=== PATIENT | female | born 1935 | race Caucasian/White ===

== ENCOUNTER 2018-06-29 13:55 | Outpatient (REF) | payer MEDICARE, BC, SELFPAY ==
[2018-06-29 18:48] LABS: Bilirubin Negative (Negative); Blood Small (Negative); Clarity Clear; Glucose Negative (Negative); Ketones Trace mg/dL (Negative); Leukocyte Esterase Small (Negative); Nitrite Negative (Negative); Urobilinogen 0.2 EU/dL (Up TO 0.2)
[2018-06-29 18:51] LABS: Abs Immature Grans 0.03 k/cumm (0.0-0.09); Absolute Basophil Count 0.04 k/cumm (0.0-0.2); Absolute Eosinophil Count 0.09 k/cumm (0.0-0.7); Absolute Lymphocyte Count 1.56 k/cumm (1.2-3.4); Absolute Monocyte Count 0.86 k/cumm (0.11-0.7); Absolute Neutrophil Count 6.79 k/cumm (1.2-6.7); Basophils % 0.4; HCT 41.2 % (36.0-46.0); HGB 14.1 g/dL (12.0-15.5); Immature Grans % 0.3; Lymphocytes % 16.6; Mean Corp. HGB Concentration 34.2 g/dL (32.0-36.0); Mean Corpuscular Hemoglobin 29.9 pg (27.0-33.0); Mean Corpuscular Volume 87.5 fL (80-95); Mean Platelet Volume 11.7 fL (8.0-11.0); Monocytes % 9.2; Neutrophils % 72.5; Platelet Count 239 x1000/uL (130-400); RBC 4.71 m/cumm (4.00-5.20); RBC Distribution Width 14.6 % (11.7-14.6); White Blood Cell Count 9.37 k/cumm (4.4-10.8)
[2018-06-29 19:35] LABS: ALT 23 U/L (12-78); AST 29 U/L (15-37); Albumin 3.5 g/dL (3.4-5.0); Alkaline Phosphatase 82 U/L (46-116); Anion Gap 6.3 mmol/L (3-11); BUN 12 mg/dL (7-18); Bilirubin, Total 0.7 mg/dL (0.2-1.0); CO2 33.7 mmol/L (21.0-32.0); Calcium 8.9 mg/dL (8.5-10.1); Chloride 95 mmol/L (98-107); Glucose 83 mg/dL (70-100); Sodium 135 mmol/L (136-145); Total Protein 6.8 g/dL (6.4-8.2)
[2018-06-29 19:51] LABS: Bacteria Few HPF (Negative); C & S Indicated? Yes; Casts Negative LPF (Negative); Crystals Negative HPF (Negative); Epithelial Cells Rare HPF (Negative); Mucus Negative (Negative); Other Cells Moderate Renal (Negative)
== END 2018-06-29 14:15 ==
LOC: NCHCN 13:55
PROVIDERS: PCP Family Medicine; Visit Provider Family Medicine
DX: R26.89 Other abnormalities of gait and mobility (principal); R32 Unspecified urinary incontinence
CPT/HCPCS: 80053; 81003; 81015; 85025; 87086

== ENCOUNTER 2019-03-31 09:32 | Emergency (ER) | payer MEDICARE, BC, SELFPAY ==
[2019-03-31 09:30] VITALS: BP 155/73; PULSE 86; RESP 16; TEMP 36.2; O2SAT 99
[2019-03-31 09:55] LABS: Bilirubin Negative (Negative); Blood Negative (Negative); Clarity Clear (Clear); Glucose Negative (Negative); Ketones Negative (Negative); Leukocyte Esterase Trace (Negative); Nitrite Negative (Negative); Specific Gravity 1.015 (1.005-1.025); Urobilinogen 0.2 EU/dL (Up TO 0.2)
[2019-03-31 09:59] LABS: Abs Immature Grans 0.01 k/cumm (0.0-0.09); Absolute Basophil Count 0.04 k/cumm (0.0-0.2); Absolute Lymphocyte Count 1.91 k/cumm (1.2-3.4); Absolute Monocyte Count 0.37 k/cumm (0.11-0.7); Absolute Neutrophil Count 4.65 k/cumm (1.2-6.7); Basophils % 0.6; Eosinophils % 1.4; HCT 41.6 % (36.0-46.0); Immature Grans % 0.1; Mean Corp. HGB Concentration 33.7 g/dL (32.0-36.0); Mean Corpuscular Volume 92.2 fL (80-95); Monocytes % 5.2; Neutrophils % 65.7; Platelet Count 307 x1000/uL (130-400); RBC 4.51 m/cumm (4.00-5.20); RBC Distribution Width 15.4 % (11.7-14.6); White Blood Cell Count 7.08 k/cumm (4.4-10.8)
[2019-03-31 10:08] LABS: Epithelial Cells Rare HPF (Negative); RBC Negative (0-2); WBC 0-2 HPF (0-5)
[2019-03-31 10:08] LABS: Anion Gap 8.9 mmol/L (3-11); BUN 14 mg/dL (7-18); CO2 30.1 mmol/L (21.0-32.0); CREATININE 0.88 mg/dL (0.55-1.02); Calcium 9.1 mg/dL (8.5-10.1); Chloride 103 mmol/L (98-107); Glucose 95 mg/dL (70-100); Potassium 3.2 mmol/L (3.5-5.1); Sodium 142 mmol/L (136-145)
[2019-03-31 10:09] LABS: Bacteria Negative HPF (Negative); C & S Indicated? No; Casts 0-2 Fine Granular LPF (Negative); Crystals Negative HPF (Negative); Mucus Negative (Negative)
[2019-03-31 10:19] LABS: *AMPHETAMINES SCREEN URINE Negative (Negative); *BARBITURATES SCREEN URINE Negative (Negative); *BENZODIAZEPINES SCREEN URINE Negative (Negative); Cannabinoids THC Negative (Negative); Cocaine Screen,Urine Negative (Negative); METHADONE URINE SCREEN Negative (Negative); OPIATES URINE SCREEN Negative (Negative)
--- NOTE | 2019-03-31 10:21 | ED.GENADUL_ITS ---
Discharge Plan Disposition Patient Disposition: SN[facility] ([facility]) [facility] Condition: Good Discharge Details Chief Complaint: Anxiety Clinical Impression: Emotional crisis, Dementia Primary Care Provider: Danielle Barclay ED Provider: Son Payne Home Meds and New Rx's Prescriptions: Continued multivitamin [Daily Vitamin] 1 EACH tablet 1 ea PO DAILY RF: 0 calcium carbonate [Calcium 600] 600 MG tablet 1,200 mg PO DAILY RF: 0 amitriptyline 25 MG tablet 25 mg PO DAILY RF: 0 hydrochlorothiazide 12.5 MG capsule 12.5 mg PO DAILY RF: 0 metoprolol succinate 25 MG tablet extended release 24 hr 75 mg PO DAILY RF: 0 diazepam 5 MG tablet 5 mg PO DAILY RF: 0 omega-3 fatty acids [Fish Oil] 500 MG capsule 2,000 mg PO DAILY RF: 0 cholecalciferol (vitamin D3) [Vitamin D3] 2,000 UNIT capsule 2,000 unit PO DAILY RF: 0 simvastatin 5 MG tablet 5 mg PO DAILY RF: 0 magnesium oxide 500 MG capsule 500 mg PO DAILY RF: 0 Discharge Instructions Instructions: Dementia (ED) Additional Instructions: Please continue to take your daily medications and medical staff coordinator at facility should be redirecting patient for any emotional outburst as there is not seen any physical or medical cause to this but her ongoing dementia. Referrals: Danielle Barclay MD [Primary Care Provider] - (As needed for reassessment) Discharge Data Discharge Date/Time-TO BE ENTERED AT DEPARTURE: 03/31/19 10:48 Medical Decision Making Patient presenting to the emergency department via EMS for emotional outburst. Report was given that patient got upset involving of vent with her daughter and staff were unable to handle patient. Per RN report staff did not use any of her prescribed agitation medications as patient was refusing emergency nursing staff informed me that they do have as needed Haldol orders that were placed. EMS stated that patient calm down once custodial staff let patient go and they were able to talk and calm her down. Patient denies any symptoms but does states she remembers the event and that she was upset about her daughter having to change her close. She states overall she has not been happy with her care facility but is completely calm now. Labs were ordered per protocol by medical staff coordinator and reviewed and show only slightly low potassium but otherwise are nondiagnostic. I feel that this is a emotional outburst secondary to patient's ongoing dementia and I see no worrisome findings on physical exam or speaking with patient. Patient is easily redirectable, calm, and was completely willing to take oral potassium and states that she is willing to take her other medications when she returns back to the facility. I feel patient may return back to facility with no further interventions needed. HPI General Mode of arrival: EMS . Date/Time Provider Initiated Documentation: 03/31/19 09:44 . Limitations to Documentation: no limitations . Information obtained by: patient, EMS and RN notes reviewed . History of Present Illness 83 year old F presents to the emergency department with the chief complaint of Emotional outburst, Quality is described as other (Denies pain or discomfort), Patient started experiencing this minute(s) (30) Rest improves symptom(s), Patient notes no other symptoms.. Patient did receive the following treatments prior to arrival, none Related Data Home Medications Medication Instructions Recorded Confirmed amitriptyline 25 mg PO DAILY tab-cap 10/10/13 calcium carbonate [Calcium 600] 1,200 mg PO DAILY 10/10/13 cholecalciferol (vitamin D3) 2,000 unit PO DAILY 10/10/13 [Vitamin D3] diazepam 5 mg PO DAILY 10/10/13 hydrochlorothiazide 12.5 mg PO DAILY tab-cap 10/10/13 metoprolol succinate 75 mg PO DAILY tab-cap 10/10/13 multivitamin [Daily Vitamin] 1 ea PO DAILY 10/10/13 omega-3 fatty acids [Fish Oil] 2,000 mg PO DAILY 10/10/13 magnesium oxide 500 mg PO DAILY 12/16/15 simvastatin 5 mg PO DAILY 12/16/15 Allergies Allergy/AdvReac Type Severity Reaction Status Date / Time No Known Allergies Allergy Unverified 12/06/17 12:22 General Stated Complaint: Anxiety DEBRA: 3 Review of Systems Constitutional Denies chills, Denies fever(s) and Denies headache(s) ENT Denies headache(s) Cardiovascular Denies chest pain and Denies dyspnea Respiratory Denies dyspnea Gastrointestinal Denies abdominal pain, Denies diarrhea and Denies vomiting Genitourinary Denies dysuria Neurologic Denies headache(s) [facility] Medical History hypertension Surgical History Abdominal hysterectomy Bilateral salpingectomy with oophorectomy Family History Father Heart disease Other No problems noted. Aunt No problems noted. Other Personal history of malignant neoplasm Social History Smoking/Tobacco Use Status: Current every day Alcohol Intake: former Substance use type: does not use Additional Social history: [facility]; history of demential; feels like everyone keeps want to test her for this and that Exam Const General: cooperative Orientation: alert and awake HENMT Head: normal to inspection, normocephalic and atraumatic Ears: hearing grossly normal bilaterally Mouth: moist mucous membranes Eyes General: appearance normal, both eyes and all related structures Pupils: PERRL EOM: EOM intact bilaterally Neck Thyroid: thyroid normal Resp Effort & Inspection: normal respiratory effort, able to speak in complete sentences and no respiratory distress Auscultation: clear to auscultation bilaterally Cardio Rate: regular rate and not tachycardic Rhythm: regular rhythm Heart Sounds: S1 normal, S2 normal, no click, no gallops, no murmurs and no rubs Neuro General: alert, awake, gait normal, moves all extremities and no focal motor deficits Speech: speech normal Psych Speech and Movement: speech and movement normal and speech clear Mood: not anxious, No angry and No irritable mood Attitude: cooperative Course Vital Signs Temperature 36.2 C L 03/31/19 09:30 Pulse 86 03/31/19 09:30 Respiratory Rate 16 03/31/19 09:30 Blood Pressure 155/73 H 03/31/19 09:30 Pulse Oximetry 99 03/31/19 09:30 Temperature 36.2 C L 03/31/19 09:30 Temperature Source Skin 03/31/19 09:30 Pulse 86 03/31/19 09:30 Respiratory Rate 16 03/31/19 09:30 Respiratory Effort Non-Labored 03/31/19 09:46 Blood Pressure 155/73 H 03/31/19 09:30 Pulse Oximetry 99 03/31/19 09:30 Pain Level 0 03/31/19 09:30 Lab/Test Results Lab/Test Results: Laboratory Tests Range/Units 08/11/1403/31/19 03/31/19 09:41 09:52 09:52 WBC (4.4-10.8) k/cumm 7.08 RBC (4.00-5.20) m/cumm 4.51 Hgb (12.0-15.5) g/dL 14.0 Hct (36.0-46.0) % 41.6 MCV (80-95) fL 92.2 MCH (27.0-33.0) pg 31.0 MCHC (32.0-36.0) g/dL 33.7 RDW (11.7-14.6) % 15.4 H Plt Count (130-400) x1000/uL 307 MPV (8.0-11.0) fL 10.0 Immature Gran % 0.1 Neutrophils % 65.7 Lymphocytes % 27.0 Monocytes % 5.2 Eosinophils % 1.4 Basophils % 0.6 Absolute Neutrophils (1.2-6.7) k/cumm 4.65 Absolute Lymphocytes (1.2-3.4) k/cumm 1.91 Absolute Monocytes (0.11-0.7) k/cumm 0.37 Absolute Eosinophils (0.0-0.7) k/cumm 0.10 Absolute Basophils (0.0-0.2) k/cumm 0.04 Sodium (136-145) mmol/L 142 Potassium (3.5-5.1) mmol/L 3.2 L Chloride (98-107) mmol/L 103 Carbon Dioxide (21.0-32.0) mmol/L 30.1 Anion Gap (3-11) mmol/L 8.9 BUN (7-18) mg/dL 14 Creatinine (0.55-1.02) mg/dL 0.88 Estimated GFR/1.73 m2 (mL/min/1.73m2) >= 60.00 Glucose (70-100) mg/dL 95 Calcium (8.5-10.1) mg/dL 9.1 Urine Color (Yellow) Yellow Urine Clarity (Clear) Clear Urine pH (5-8) 7.0 Ur Specific [place] (1.005-1.025) 1.015 Urine Protein (Negative) mg/dL Negative Urine Ketones (Negative) mg/dL Negative Urine Blood (Negative) Negative Urine Nitrite (Negative) Negative Urine Bilirubin (Negative) Negative Urine Urobilinogen (Up TO 0.2) EU/dL 0.2 Ur Leukocyte Esterase (Negative) Trace H Urine RBC (0-2) Negative Urine WBC (0-5) HPF 0-2 Ur Epithelial Cells (Negative) HPF Rare Urine Crystals (Negative) HPF Negative Urine Bacteria (Negative) HPF Negative Urine Casts (Negative) LPF 0-2 fine granular Urine Mucus (Negative) Negative Ur Culture Indicated? No Urine Glucose (Negative) mg/dL Negative
[2019-03-31 10:22] LABS: Tricyclic Antidepressants Negative (Negative)
[2019-03-31] MEDS: Potassium Chloride 20 MEQ TABCR PO (10:37)
[2019-03-31 10:45] VITALS: BP 127/74; PULSE 85; RESP 16; TEMP 36.7; O2SAT 97
== END 2019-03-31 10:48 | disposition skilled nursing facility (03) ==
PROVIDERS: Physician Assistant; Emergency Provider Nurse Practitioner Family; PCP Family Medicine
DX: F03.91 Unspecified dementia, unspecified severity, with behavioral disturbance (principal); I10 Essential (primary) hypertension
CPT/HCPCS: 36415; 80048; 80307; 99283; 81003; 81015; 85025

== ENCOUNTER 2019-04-05 09:38 | Outpatient (REF) | payer MEDICARE, BC, SELFPAY ==
[2019-04-05 10:46] LABS: BUN 12 mg/dL (7-18); CREATININE 0.79 mg/dL (0.55-1.02); Calcium 8.8 mg/dL (8.5-10.1); Chloride 104 mmol/L (98-107); Glucose 110 mg/dL (70-100); Potassium 3.2 mmol/L (3.5-5.1); Sodium 143 mmol/L (136-145)
== END 2019-04-05 09:58 ==
LOC: LBN 09:38
PROVIDERS: PCP Family Medicine; Visit Provider Nurse Practitioner Adult Health
DX: N18.9 Chronic kidney disease, unspecified (principal); E87.6 Hypokalemia
CPT/HCPCS: 80048

== ENCOUNTER 2019-04-13 14:48 | Outpatient (REF) | payer MEDICARE, BC, SELFPAY ==
[2019-04-13 15:29] LABS: Anion Gap 15.5 mmol/L (3-11); BUN 16 mg/dL (7-18); CO2 24.5 mmol/L (21.0-32.0); Calcium 8.9 mg/dL (8.5-10.1); Chloride 104 mmol/L (98-107); Glucose 128 mg/dL (70-100); Potassium 3.7 mmol/L (3.5-5.1); Sodium 144 mmol/L (136-145)
== END 2019-04-13 15:08 ==
LOC: LBN 14:48
PROVIDERS: PCP Family Medicine; Visit Provider Nurse Practitioner Adult Health
DX: I10 Essential (primary) hypertension (principal); E78.5 Hyperlipidemia, unspecified; F41.9 Anxiety disorder, unspecified; D03.9 Melanoma in situ, unspecified
CPT/HCPCS: 80048

== ENCOUNTER 2019-04-14 15:51 | Emergency (ER) | payer MEDICARE, BC, SELFPAY ==
--- NOTE | 2019-04-14 15:56 | NUR.NOTE ---
Nursing Note: [facility]. EMS states they witnessed no violent behavior upon arrival PT calm and follows commands
[2019-04-14 15:58] VITALS: BP 143/55; PULSE 77; RESP 17; TEMP 37.2; O2SAT 98
--- NOTE | 2019-04-14 16:27 | W.ED.GENAD ---
Discharge Plan Disposition Patient Disposition: HOME Discharge Details Chief Complaint: GenMedical Clinical Impression: Dementia Primary Care Provider: Danielle Barclay ED Provider: Colton Morales Home Meds and New Rx's Prescriptions: Continued multivitamin [Daily Vitamin] 1 EACH tablet 1 ea PO DAILY RF: 0 calcium carbonate [Calcium 600] 600 MG tablet 1,200 mg PO DAILY RF: 0 metoprolol succinate 25 MG tablet extended release 24 hr 50 mg PO BID RF: 0 cholecalciferol (vitamin D3) [Vitamin D3] 2,000 UNIT capsule 2,000 unit PO DAILY RF: 0 quetiapine [Seroquel] 25 mg Tablet 25 mg PO TID PRNRF: 0 quetiapine [Seroquel] 25 mg Tablet 25 mg PO BID RF: 0 acetaminophen 325 mg Suppository 325 mg [place] Q6H PRNRF: 0 acetaminophen 325 mg Tablet 650 mg PO Q6H PRN PRNRF: 0 Aspercreme (lidocaine) 4 % Adhesive Patch,Medicated 1 patch TOPICAL DAILY RF: 0 potassium chloride 10 mEq Tablet Extended Release 10 meq PO DAILY RF: 0 acetaminophen 650 mg Tablet Extended Release 650 mg PO Q8H RF: 0 furosemide [Lasix] 20 mg Tablet 20 mg PO DAILY RF: 0 polyethylene glycol 3350 17 gram/dose Powder 17 g PO DAILY RF: 0 carbidopa-levodopa [Sinemet] 25-100 mg Tablet 1 tab PO TID RF: 0 sertraline 50 mg Tablet 75 mg PO DAILY RF: 0 divalproex [Depakote Sprinkles] 125 mg Capsule, Delayed Rel Sprinkle 125 mg PO BID RF: 0 Discharge Instructions Instructions: Dementia (ED) Additional Instructions: Please follow-up with your primary care physician. You may need adjustments to your current medication. Return to the ER for any worsening or new concerning symptoms. Discharge Data Discharge Date/Time-TO BE ENTERED AT DEPARTURE: 04/14/19 16:57 Medical Decision Making 83-year-old female with history of dementia, here at the prompting of nursing staff at [facility] rehab for concerns for acute agitation. Patient was here for similar on 03/31/2019. Patient is fully cooperative, calm and pleasant on exam. No signs of acute delirium. Suspect intermittent exacerbation of her dementia. Plan to discharge back to [facility] and rehab. I will speak with the provider international student advisor for rehab facility. HPI General Mode of arrival: EMS. Date/Time Provider Initiated Documentation: 04/14/19 16:09. Limitations to Documentation: no limitations. Information obtained by: patient, EMS and RN notes reviewed. HPI Narrative: 83-year-old female with history of dementia, currently resides at [facility] and rehab, presents with EMS for concerns of combative behavior per nursing at rehab facility. Per EMS, patient has been calm and cooperative since they initiated transport. Per nursing staff here she has been calm and cooperative. Patient has no complaints. Of note, the patient was seen here in the ED on 03/31/2019 for a emotional outburst had a comprehensive work-up at that time which was nondiagnostic and was discharged back to [facility] and rehab. Related Data Home Medications Medication Instructions Recorded Confirmed calcium carbonate [Calcium 600] 1,200 mg PO DAILY 10/10/13 04/14/19 cholecalciferol (vitamin D3) 2,000 unit PO DAILY 10/10/13 04/14/19 [Vitamin D3] metoprolol succinate 50 mg PO BID tab-cap 10/10/13 04/14/19 multivitamin [Daily Vitamin] 1 ea PO DAILY 10/10/13 04/14/19 Aspercreme (lidocaine) 1 patch TOPICAL DAILY 04/14/19 04/14/19 acetaminophen 325 mg [place] Q6H PRN 04/14/19 04/14/19 acetaminophen 650 mg PO Q6H PRN PRN 04/14/19 04/14/19 acetaminophen 650 mg PO Q8H 04/14/19 04/14/19 carbidopa-levodopa [Sinemet] 1 tab PO TID 04/14/19 04/14/19 divalproex [Depakote Sprinkles] 125 mg PO BID 04/14/19 04/14/19 furosemide [Lasix] 20 mg PO DAILY 04/14/19 04/14/19 polyethylene glycol 3350 17 g PO DAILY 04/14/19 04/14/19 potassium chloride 10 meq PO DAILY 04/14/19 04/14/19 quetiapine [Seroquel] 25 mg PO BID 04/14/19 04/14/19 quetiapine [Seroquel] 25 mg PO TID PRN 04/14/19 04/14/19 sertraline 75 mg PO DAILY 04/14/19 04/14/19 Allergies Allergy/AdvReac Type Severity Reaction Status Date / Time No Known Allergies Allergy Unverified 04/14/19 16:02 General Stated Complaint: GenMedical DEBRA: 4 Review of Systems Review of Systems All systems reviewed & are unremarkable except as noted in HPI and below Constitutional Denies fever(s) Cardiovascular Denies chest pain and Denies dyspnea Respiratory Denies dyspnea PFSH Medical History hypertension Surgical History Abdominal hysterectomy Bilateral salpingectomy with oophorectomy Family History Father Heart disease Other No problems noted. Aunt No problems noted. Other Personal history of malignant neoplasm Social History Smoking/Tobacco Use Status: Former Tobacco Use Alcohol Intake: former Drug use: Never Substance use type: does not use Additional Social history: [facility]; history of demential; feels like everyone keeps want to test her for this and that Exam Const General: cooperative and no acute distress HENMT Head: normocephalic and atraumatic Mouth: moist mucous membranes Eyes Conjunctivae: normal conjunctivae Sclera: normal sclerae Neck Neck: trachea midline and supple Resp Auscultation: clear to auscultation bilaterally, no rales, no rhonchi and no wheezes Cardio Jugular venous pressure: no JVD Rate: regular rate and not tachycardic Rhythm: regular rhythm GI Palpation: soft, not firm, no guarding, no masses, not rigid and nontender Skin General skin exam: no rashes or lesions noted Neuro General: alert, awake, oriented Patient Orientation: Person and Place and tone normal Speech: speech normal Motor: muscle tone normal throughout Sensory Exam: no sensory deficits noted Extrem General: no edema Psych Appearance: grossly normal Speech and Movement: not agitated, speech clear, not restless and speech not slurred Mood: not anxious, not manic, not paranoid, not labile, No angry and No irritable mood Affect: normal affect, No labile affect, No anxious affect, No hostile and No irritable affect Attitude: cooperative Thought Content: no hallucinations Course Vital Signs Temperature 37.2 C 04/14/19 15:58 Pulse 77 04/14/19 15:58 Respiratory Rate 17 04/14/19 15:58 Blood Pressure 143/55 H 04/14/19 15:58 Pulse Oximetry 98 04/14/19 15:58 Temperature 37.2 C 04/14/19 15:58 Temperature Source Skin 04/14/19 15:58 Pulse 77 04/14/19 15:58 Respiratory Rate 17 04/14/19 15:58 Blood Pressure 143/55 H 04/14/19 15:58 Pulse Oximetry 98 04/14/19 15:58 Oxygen Delivery Method Room Air 04/14/19 15:58 Oxygen Flow Rate 0 04/14/19 15:58 Pain Level 0 04/14/19 15:58
[2019-04-14 16:43] VITALS: RESP 16
== END 2019-04-14 16:57 | disposition home or self-care (01) ==
PROVIDERS: Emergency Provider Student in an Organized Health Care Education/Training Program; PCP Family Medicine
DX: F03.91 Unspecified dementia, unspecified severity, with behavioral disturbance (principal)
CPT/HCPCS: 99282

== ENCOUNTER 2019-05-29 14:00 | Outpatient (REF) | payer MEDICARE, BC, SELFPAY ==
[2019-05-29 14:57] LABS: VALPROIC ACID 33.3 ug/mL (50-100)
== END 2019-05-29 14:20 ==
LOC: LBN 14:00
PROVIDERS: PCP Family Medicine; Visit Provider Nurse Practitioner Adult Health
DX: F03.90 Unspecified dementia, unspecified severity, without behavioral disturbance, psychotic disturbance, mood disturbance, and anxiety (principal); Z51.81 Encounter for therapeutic drug level monitoring
CPT/HCPCS: 80164

== ENCOUNTER 2019-06-19 11:27 | Outpatient (CLI) | payer MEDICARE, BC, SELFPAY ==
[2019-06-19 13:36] LABS: Anion Gap 8.5 mmol/L (3-11); BUN 18 mg/dL (7-18); CO2 31.5 mmol/L (21.0-32.0); CREATININE 0.91 mg/dL (0.55-1.02); Calcium 9.1 mg/dL (8.5-10.1); Chloride 104 mmol/L (98-107); Estimated GFR 59.18 (mL/min/1.73m2); Glucose 112 mg/dL (70-100); Potassium 3.8 mmol/L (3.5-5.1); Sodium 144 mmol/L (136-145)
[2019-06-19 13:45] LABS: Abs Immature Grans 0.01 k/cumm (0.0-0.09); Absolute Basophil Count 0.03 k/cumm (0.0-0.2); Absolute Eosinophil Count 0.11 k/cumm (0.0-0.7); Absolute Lymphocyte Count 1.72 k/cumm (1.2-3.4); Absolute Monocyte Count 0.35 k/cumm (0.11-0.7); Absolute Neutrophil Count 4.89 k/cumm (1.2-6.7); Basophils % 0.4; Eosinophils % 1.5; HCT 44.4 % (36.0-46.0); HGB 14.5 g/dL (12.0-15.5); Immature Grans % 0.1; Lymphocytes % 24.2; Mean Corp. HGB Concentration 32.7 g/dL (32.0-36.0); Mean Corpuscular Hemoglobin 30.7 pg (27.0-33.0); Mean Corpuscular Volume 93.9 fL (80-95); Monocytes % 4.9; Neutrophils % 68.9; Platelet Count 330 x1000/uL (130-400); RBC 4.73 m/cumm (4.00-5.20); RBC Distribution Width 14.9 % (11.7-14.6); White Blood Cell Count 7.11 k/cumm (4.4-10.8)
== END 2019-06-19 11:47 ==
PROVIDERS: PCP Family Medicine; Visit Provider Nurse Practitioner Adult Health
DX: I10 Essential (primary) hypertension (principal)
CPT/HCPCS: 36415; 80048; 85025

== ENCOUNTER 2019-09-26 09:25 | Emergency (ER) | payer MEDICARE, BC, SELFPAY ==
[2019-09-26] VITALS (12 sets, daily range): BP systolic 114–151; BP diastolic 55–67; PULSE 68–78; RESP 13–19; TEMP 36.7; O2SAT 92–97
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
[2019-09-26] MEDS: Sertraline 25 MG TAB 75 MG PO (09:53)
[2019-09-26] MEDS: QUEtiapine 25 MG TAB PO (09:53)
== END 2019-09-26 11:35 | disposition intermediate care facility (04) ==
LOC: ER 10:46
PROVIDERS: Emergency Provider Emergency Medicine; PCP Family Medicine
DX: R45.1 Restlessness and agitation (principal); F03.90 Unspecified dementia, unspecified severity, without behavioral disturbance, psychotic disturbance, mood disturbance, and anxiety; I10 Essential (primary) hypertension
CPT/HCPCS: 99284; 99283

== ENCOUNTER 2020-01-28 15:15 | Outpatient (REF) | payer MEDICARE, BC, SELFPAY ==
[2020-01-28 15:17] LABS: Abs Immature Grans 0.02 k/cumm (0.0-0.09); Absolute Basophil Count 0.03 k/cumm (0.0-0.2); Absolute Eosinophil Count 0.19 k/cumm (0.0-0.7); Absolute Lymphocyte Count 2.36 k/cumm (1.2-3.4); Absolute Monocyte Count 0.59 k/cumm (0.11-0.7); Absolute Neutrophil Count 5.98 k/cumm (1.2-6.7); Basophils % 0.3; Eosinophils % 2.1; HCT 43.2 % (36.0-46.0); HGB 14.6 g/dL (12.0-15.5); Immature Grans % 0.2 %; Lymphocytes % 25.7; Mean Corp. HGB Concentration 33.8 g/dL (32.0-36.0); Mean Corpuscular Hemoglobin 30.4 pg (27.0-33.0); Mean Platelet Volume 10.9 fL (8.0-11.0); Monocytes % 6.4; Neutrophils % 65.3; Platelet Count 342 x1000/uL (130-400); RBC Distribution Width 14.2 % (11.7-14.6); White Blood Cell Count 9.17 k/cumm (4.4-10.8)
[2020-01-28 15:28] LABS: ALT 12 U/L (14-59); AST 18 U/L (15-37); Albumin 3.7 g/dL (3.4-5.0); Alkaline Phosphatase 93 U/L (46-116); BUN 20 mg/dL (7-18); Bilirubin, Total 0.5 mg/dL (0.2-1.0); CREATININE 0.94 mg/dL (0.55-1.02); Calcium 8.8 mg/dL (8.5-10.1); Chloride 101 mmol/L (98-107); Estimated GFR 56.87 (mL/min/1.73m2); Glucose 93 mg/dL (74-106); Potassium 3.8 mmol/L (3.5-5.1); Sodium 139 mmol/L (136-145); Total Protein 6.8 g/dL (6.4-8.2)
[2020-01-28 16:56] LABS: Bilirubin Negative (Negative); Blood Negative (Negative); Clarity Clear (Clear); Glucose Negative (Negative); Ketones Negative (Negative); Leukocyte Esterase Small (Negative); Nitrite Negative (Negative); Specific Gravity 1.025 (1.005-1.025); Urobilinogen 0.2 EU/dL (Up TO 0.2)
[2020-01-28 17:08] LABS: Bacteria Moderate HPF (Negative); C & S Indicated? C&S Done As Ordered; Casts Negative LPF (Negative); Crystals Negative HPF (Negative); Epithelial Cells Negative HPF (Negative); Mucus Negative (Negative); RBC 0-2 HPF (0-2)
[2020-01-29 18:37] LABS: COVID-19 RT-PCR Result Not Detected ((See Note))
== END 2020-01-28 15:35 ==
LOC: LBN 15:15
PROVIDERS: PCP Family Medicine; Visit Provider Nurse Practitioner Adult Health
DX: R39.81 Functional urinary incontinence (principal); I10 Essential (primary) hypertension; Z20.828 Contact with and (suspected) exposure to other viral communicable diseases; F03.91 Unspecified dementia, unspecified severity, with behavioral disturbance
CPT/HCPCS: 80053; U0003; 81003; 81015; 85025; 87086